=== PATIENT | female | born 1985 | race Hispanic/Latino ===

== ENCOUNTER 2025-01-27 00:55 | Emergency (ER) | payer BC ==
[~2025-01-27] VITALS: Ht 177.8 cm; Wt 122.5 kg
--- NOTE | 2025-01-27 01:07 | ERN ---
ED Note History of Present Illness Stated Complaint: FALL Chief Complaint: Knee Injury/Swelling Time Seen by MD: 00:57 Time Seen by Midlevel: 00:58 Dictation: 39-year-old female who presents to the emergency department due to reported having sustained a fall outside of the house approximately 20 minutes prior to arrival. Patient states that she lost her balance as she was attempting to separate some dogs from fighting. She states that she landed on both her knees and is complaining of having pain. Patient states the pain is primarily with movement. At this time, she rates her level of discomfort as a 7/10. Currently, she denies having sustained any other injury. Upon initial evaluation, the patient presents with a normal neurovascular examination. Allergies: Coded Allergies: piperacillin (Unverified Allergy, Unknown, 01/27/25) tazobactam (Unverified Allergy, Unknown, 01/27/25) Emergency Care ASSISTANT FITNESS MANAGER: None Past Medical History Past Medical History: No Pertinent History Surgical History: Other Surgical History Other: LEFT KNEE PSYCH History: no pertinent psych hx LMP: January 03, 2025 RN Note Reviewed/Agreed w/PFSH: Yes Review of System Dictation MS/Extremity: Bilateral knee pain Initial Vital Sign VS Vital Signs Date Time Temp Pulse Resp B/P (MAP) Pulse Ox O2 Delivery O2 Flow Rate FiO2 01/27/25 00:56 98.1 102 20 131/93 99 Room Air Physical Exam Dictation General: awake, alert, NAD Head/Face: Normocephalic, atraumatic Eyes: PERRL, EOMI ENT: Oral mucosa moist Neck: Trachea midline, supple Cardiovascular: RRR, no edema Respiratory: Symmetrical, non-labored Abdomen: Soft, non-tender, non-distended, no guarding. Skin: Warm, dry, good turgor, no rash MS/Extremity: Painful range of motion, tenderness and swelling to both knees. Normal neurovascular examination. Neuro: COAx4, GCS 15, steady gait, Psych: Normal behavior, mood, and affect normal Results (Laboratory/Radiology) X-RAY Comment: Bilateral knee x-rays with no cortical anomalies or deformities as interpreted by me. ED Course ED Course Orders Procedure Category Date Status Time Knee 3 Vw Bilateral RAD 01/27/25 Taken 01:03 Acetaminophen 500mg PHA 01/27/25 Complete Tab (Tylenol 500mg T 01:30 Current Medications Medications (Trade) Dose Ordered Sig/Patricia Route PRN Reason Start Time Stop Time Status Last Admin Dose Admin Acetaminophen (TYLenol 500MG TAB) 1,000 mg ONCE ONCE PO 01/27/25 01:30 01/27/25 01:31 DC 01/27/25 01:11 Vital Signs Date Time Temp Pulse Resp B/P (MAP) Pulse Ox O2 Delivery O2 Flow Rate FiO2 01/27/25 00:56 98.1 102 20 131/93 99 Room Air Medical Decision Making MDM MDM: Differential diagnosis: Patellar fracture, knee contusion, knee sprain. Rationale: Tests considered and ordered secondary to shared decision making include: Previous outside records reviewed: Old ER visits. Risk of complication and/or morbidity or mortality of patient management: None Medications-Per medication reconciliation Need for hospitalization: Patient does not meet criteria for hospitalization. Need for emergency major/minor surgery: No There are no social concerns with this patient. Prescription drug management Prescriptions will include symptomatic care Patient's prior external medical records from other ER visits were reviewed by me as indicated. Prior testing and results from previous visits were reviewed. Prior tests were taken into account with medical decision making and resource utilization, independent historian/historians were used to obtain complete medical history. I independently interpreted the test that were performed, results were reviewed by me and considered findings on radiology if ordered. Medical management and examination interpretation discussions were had by me with other qualified healthcare professionals as indicated for the patient's care. DX & DISP Disposition: Discharge Departure Impression: Primary Impression: Contusion of knee, left Additional Impression: Contusion of knee, right Condition: Stable Referrals: SELF,REFERRAL (PCP) EVANS HOFFMAN January 27, 2025 01:07
[2025-01-27] MEDS: acetaMINOPHEN 500 MG TABLET PO ONE (01:11)
[2025-01-27 02:05] VITALS: BP 134/69; PULSE 84; RESP 19; TEMP 98.3; O2SAT 99
--- NOTE | 2025-01-27 08:30 | HMCIMG ---
RIGHT KNEE RADIOGRAPHS - 3 VIEWS INDICATION: Pain COMPARISON: None FINDINGS: AP, crosstable lateral, oblique views No acute fracture or dislocation identified. No significant joint effusion is present. Soft tissues appear normal. No radiopaque foreign body noted. IMPRESSION: No significant degenerative joint disease. LEFT KNEE RADIOGRAPHS - 3 VIEWS INDICATION: Pain COMPARISON: None FINDINGS: AP, crosstable lateral, oblique views No acute fracture or dislocation identified. No significant joint effusion is present. Soft tissues appear normal. No radiopaque foreign body noted.
== END 2025-01-27 02:12 | disposition home or self-care (01) ==
LOC: EDH 00:55
DX: S80.01XA Contusion of right knee, initial encounter (principal); S80.02XA Contusion of left knee, initial encounter; Z88.0 Allergy status to penicillin; W18.39XA Other fall on same level, initial encounter; Y93.89 Activity, other specified; Y92.098 Other place in other non-institutional residence as the place of occurrence of the external cause; Y99.8 Other external cause status
CPT/HCPCS: 99283

== ENCOUNTER 2025-08-10 05:05 | Emergency (ER) | payer BC ==
[~2025-08-10] VITALS: Ht 177.8 cm; Wt 113.4 kg
--- NOTE | 2025-08-10 05:19 | ERN ---
General Chief Complaint: Sore Throat Stated Complaint: SORE THROAT, MALAISE Time Seen by MD: 05:10 History of Present Illness Initial Comments 40-year-old female history of 78 here for evaluation of sore throat. Patient states who was in her normal state of health yesterday however started having sore throat and difficulty swallowing at 10:00 p.m. last night. States she is able to tolerate fluids but was concerned about the sore throat so she decided to come in the emergency room for evaluation no fever. No cough. No vomiting or diarrhea Allergies: Coded Allergies: piperacillin (Unverified Allergy, Unknown, 01/27/25) tazobactam (Unverified Allergy, Unknown, 01/27/25) Past Medical History Past Medical History: Other Medical History Other: ADHD Past Surgical History: Other Surgical History Other: LEFT KNEE EENTM: (+) throat pain, (+) Throat swelling Review of Systems: was completed, & the rest were negative. Physical Exam General Appearance: (+) no apparent distress Orientation: (+) alert Eye: bilateral eye normal inspection, bilateral eye PERRL, bilateral eye EOMI Ear, Nose, Throat: (+) hearing grossly normal, (+) normal ENT inspection, (+) moist mucous membraine, (+) normal pharynx Ear, Nose, Throat Comment No obvious swelling, erythema, exudate on oropharynx Neck: (+) normal inspection, (+) supple, (+) lymphadenopathy Heart: (+) regular; (-) murmur Gastrointestinal: (+) soft, (+) non-tender MDM 40-year-old female here for evaluation of sore throat. We will get labs/swabs and reassess. We will also give analgesia via steroids and NSAIDs ED Course Orders Procedure Category Date Status Time Influenza Type A & B, LAB 08/10/25 Logged Rapid 05:11 Covid19 (Sars Antigen LAB 08/10/25 Logged Rapid) 05:11 Ketorolac PHA 08/10/25 Logged Tromethamine 15mg/Ml 05:30 Rapid (Group A Strep) LAB 08/10/25 Logged 05:12 Dexamethasone 4mg/Ml PHA 08/10/25 Verified 1ml Vial (Dexametha 05:30 Current Medications Medications (Trade) Dose Ordered Sig/Patricia Route PRN Reason Start Time Stop Time Status Last Admin Dose Admin Ketorolac Tromethamine (toRADol) 15 mg ONCE ONCE IM 08/10/25 05:30 08/10/25 05:31 UNV Vital Signs Date Time Temp Pulse Resp B/P (MAP) Pulse Ox O2 Delivery O2 Flow Rate FiO2 08/10/25 05:06 97.9 115 20 121/72 99 Room Air 0 DX & DISP Disposition: Discharge Departure Impression: Primary Impression: Viral pharyngitis Condition: Stable Scripts Methylprednisolone (Medrol) 4 Mg Tab.ds.pk 1 TAB PO AD for 6 Days, #21 TAB 0 Refills 6 on day 1 then reduce by one tablet daily until gone Prov: JULIO RADFORD MD 08/10/25 Referrals: SELF,REFERRAL (PCP) JULIO RADFORD MD Aug 10, 2025 05:18
[2025-08-10 05:39] LABS: COVID19 (SARS ANTIGEN RAPID) PRESUMPTIVE NEGATIVE (NEGATIVE); INFLUENZA TYPE A Negative For Type A (NEGATIVE); INFLUENZA TYPE B Negative For Type B (NEGATIVE)
[2025-08-10 05:55] VITALS: BP 124/79; PULSE 100; RESP 18; TEMP 98.4; O2SAT 98
== END 2025-08-10 05:56 | disposition home or self-care (01) ==
LOC: EDH 05:05
DX: J02.8 Acute pharyngitis due to other specified organisms (principal); B97.89 Other viral agents as the cause of diseases classified elsewhere; Z88.0 Allergy status to penicillin; Z88.8 Allergy status to other drugs, medicaments and biological substances; Z20.822 Contact with and (suspected) exposure to COVID-19
CPT/HCPCS: 99284; 87426; 87880; 87804 ×2; 96372 ×2; J1100; J1885